=== PATIENT | female | born 1945 | race Caucasian/White ===

== ENCOUNTER 2017-04-23 14:44 | Observation (INO) | payer MEDICARE, OTHER ==
[~2017-04-23] VITALS: Ht 139.7 cm; Wt 64.5 kg
[~2017-04-23 14:44] MED LIST: ASPIRIN 81M81 MG/TA2 PO; ASPIRIN E.C. 8181 MG PO; B-12 500 MCG PO; BENADRYL25 M2 PO; BIOFLEX PO; BREATHING TREATMENT; CALCIUM 600MG+D1 TAB PO; CALCIUM CARBON500 M1 PO; CALCIUM WITH D1 CTB PO; CALCIUM600 M2 PO; CARAFATE 1GM1 G PO; CATAPRES 0.1MG0.1 MG PO; CLEOCIN HCL300 MG PO; DIFLUCAN 100MG100 MG PO; HCTZ 25MG TAB25 MG PO; IMDUR 30MG30 MG/TAB PO; IOPHEN C NR PO; ISORDIL TITRADO30 MG PO; LIDO 1% IH; LIQUID MAGNESI400 MG PO; LORTAB 5/500 501 TAB PO; MAGOX 400241.3 MG PO; MULTI VITAMINS1 TAB PO; MVI; NATURAL E400 IU PO; NEXIUM 20MG20 MG PO; NEXIUM 40MG40 MG PO; NITROSTAT0.4 MG/TAB SL; OSTEO-BI-FLEX 21 TAB PO; PRILOSEC 20MG20 MG PO; PROAIR HFA0.09 MG/AC IH; PROBIOTIC-MAJOR PO; PULMICORT0.5 MG/2 M IH; QUALITY VA PO; REGLAN 10MG10 MG/TAB PO; RT ADVAIR HFA 1112 G IH; SINGULAIR 110 MG/TAB PO; TOPROL XL 25MG25 MG PO; ULTRAM 50MG TAB50 MG PO; VESICARE10 MG PO; VITAMIN C500 MG PO; VITAMIN E-400200 IU PO; ZINC1 GRA PO; ZYRTEC 10MG10 MG PO; [UNRECOGNIZED DRUG - OTHER]; magnesium oxide PO
[2017-05-30] VITALS (11 sets, daily range): BP systolic 100–126; BP diastolic 49–89; PULSE 68–78; TEMP 97.5–97.9
[2017-05-30] MEDS ORDERED: OSTEO-BI-FLEX 21 TAB PO (06:58)
[2017-05-30] MEDS ORDERED: XANAX 0.5MG0.5 MG PO (07:07)
[2017-05-30] MEDS ORDERED: PULMICORT0.25 MG/2 IH (07:08)
[2017-05-30] MEDS ORDERED: ALBUTEROL0.83 MG/ML IH (07:08)
[2017-05-31 02:40] VITALS: BP 98/41; PULSE 79; TEMP 97.7
[2017-05-31 06:25] VITALS: BP 102/45; PULSE 78; TEMP 98.3
[2017-05-31 09:43] VITALS: BP 107/49; PULSE 66; TEMP 97.9
[2017-05-31 14:16] VITALS: BP 109/51; PULSE 73; TEMP 98.3
== END 2017-05-31 14:51 | disposition home or self-care (01) ==
LOC: INPTSU 05-30 05:26 → SURG 05-30 07:30 → INPTSU 05-30 11:01 → SURG 05-30 13:09
DX: N99.3 Prolapse of vaginal vault after hysterectomy (principal); N39.3 Stress incontinence (female) (male); N36.42 Intrinsic sphincter deficiency (ISD); I10 Essential (primary) hypertension; I25.110 Atherosclerotic heart disease of native coronary artery with unstable angina pectoris; J45.909 Unspecified asthma, uncomplicated; K21.9 Gastro-esophageal reflux disease without esophagitis; M19.90 Unspecified osteoarthritis, unspecified site; Z90.710 Acquired absence of both cervix and uterus; Z95.0 Presence of cardiac pacemaker; Z85.41 Personal history of malignant neoplasm of cervix uteri
CPT/HCPCS: A4315; A9284; C1781; G0378; J0461; J0690; J1100; J1170; J1885; J2175; J2370; J2405; J2704; J7050; J7120

== ENCOUNTER → 2017-07-02 | Outpatient (CLI) | payer MEDICARE, OTHER ==
[~2017-07-02] MED LIST changes: +ALBUTEROL0.83 MG/ML IH; +PULMICORT0.25 MG/2 IH; +XANAX 0.5MG0.5 MG PO
== END ==
LOC: MC.RAD 13:22
DX: Z12.31 Encounter for screening mammogram for malignant neoplasm of breast (principal)

== ENCOUNTER → 2018-07-10 | Outpatient (CLI) | payer MEDICARE, OTHER | LOC: MC.RAD 10:57 | DX: Z12.31 Encounter for screening mammogram for malignant neoplasm of breast (principal) ==

== ENCOUNTER → 2019-07-18 | Outpatient (CLI) | payer MEDICARE, OTHER | LOC: MC.RAD 09:44 | DX: Z12.31 Encounter for screening mammogram for malignant neoplasm of breast (principal) ==

== ENCOUNTER → 2019-11-14 | Outpatient (CLI) | payer MEDICARE, OTHER | LOC: COL.RAD 09:54 | DX: K56.41 Fecal impaction (principal); R93.5 Abnormal findings on diagnostic imaging of other abdominal regions, including retroperitoneum ==

== ENCOUNTER → 2020-07-06 | Outpatient (CLI) | payer MEDICARE, OTHER ==
[~2020-07-06] VITALS: Ht 139.7 cm; Wt 71.5 kg
[~2020-07-06] MED LIST changes: +CALCIUM-MAGNES1 EAC1 PO; +DEXILANT60 MG PO; +ONE-A-DAY ESSE1 EACH PO; +PRINIVIL20 MG PO; +PROBIOTIC BLEN1 EACH PO; +TIAZAC120 MG PO; +VASOTEC 5MG5 MG/TAB PO; +VITAMIN D 400400 IU PO; +VITAMIN E 400 U4001 PO; +VITAMINC1000TA PO; +XOLAIR75 MG/0.5 SQ
[2020-07-06 12:34] VITALS: BP 131/62; PULSE 64
[2020-07-06 13:22] VITALS: BP 122/74; PULSE 62
== END ==
LOC: COL.RAD 12:02
DX: M47.26 Other spondylosis with radiculopathy, lumbar region (principal)
CPT/HCPCS: J3301

== ENCOUNTER → 2021-10-13 | Outpatient (CLI) | payer MEDICARE, OTHER | LOC: COL.RAD 10-03 08:00 | DX: K21.00 Gastro-esophageal reflux disease with esophagitis, without bleeding (principal); K22.70 Barrett's esophagus without dysplasia; K31.84 Gastroparesis; K44.9 Diaphragmatic hernia without obstruction or gangrene | CPT/HCPCS: A9541 ==